=== PATIENT | female | born 1980 ===

== ENCOUNTER 2024-05-21 08:59 | Outpatient (AMB) | payer OTHER, SELFPAY ==
--- NOTE | 2024-05-21 09:18 | MHC.PC.OV ---
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: No Accompanied by: Self / Same As Patient Allergies No Known Allergies Allergy (Unverified 05/21/24 09:34) Medication List - Last Reconciled 05/21/24 by Jewel Childers MD fluticasone propionate 50 mcg/actuation (Flonase Allergy Relief) 1 spray intranasal BID lorazepam 1 mg PO BID PRN Ventolin HFA 90 mcg/actuation (albuterol sulfate) 2 puffs inhalation Q4-6H PRN 30 days NS Tobacco use date assessed: 05/21/24 Dental Screening Dental Screen Date: 05/21/24 Did you have a dental visit in the last 12 months?: No Did you have a dental problem in the last 6 months where you did not have access to dental care?: No Was dental information given to patient?: Patient has dentist HPI YOUTH DIRECTOR PE (High BP) HPI Details Patient comes in today for her annual physical examination and to reestablish care - is a patient of Dr. Pan She was last seen in January 2021 States that she has been out of her Rx and needs all of them refilled today She denies any headaches or dizziness Denies any chest pains, no SOB No nausea/vomiting, no abdominal pain No change in bowel habits noted She denies any acute urinary symptoms She does not appear to have had any mammogram done in the past She [facility] for her annual pap smear and gynecology exam but has not been back since 2016 States that she is now going to [facility] on [facility] in [facility] and had her exam done last year [facility] Medical History Anxiety disorder Asthma Allergic rhinitis Surgical History No pertinent past surgical history Family History Mother Diabetes Social History Housing: Apartment Alcohol intake: current Patient Tobacco Use Status: Never used Tobacco e-Cigarette/Vaping Use: Never Used service: No Current occupational status: employed Cognitive needs: No Hearing needs: No Vision needs: No Questionnaire PHQ-9 Over the last 2 weeks, how often have you been bothered by any of the following problems? 1. Little interest or pleasure in doing things: not at all 2. Feeling down, depressed, or hopeless: nearly every day 3. Trouble falling or staying asleep, or sleeping too much: nearly every day 4. Feeling tired or having little energy: not at all 5. Poor appetite or overeating: more than half the days 6. Feeling bad about yourself - or that you are a failure or have let yourself or your family down: nearly every day 7. Trouble concentrating on things, such as reading the newspaper or watching television: more than half the days 8. Moving or speaking so slowly that other people could have noticed. Or the opposite - being so fidgety or restless that you have been moving around a lot more than usual: not at all 9. Thoughts that you would be better off or of hurting yourself in some way: more than half the days Total score: 15 Depression Screening Interpretation: Positive Depression Screening Follow-up: Existing condition and Community Mental Health Worker F/U Depression Screening Done: Yes 86749 - PHQ-9 Billing: Yes Source: Developed by Drs. Charles Glover, Wanda Novak, Finn Dan and colleagues, with an educational alireza from [employer]. Thrive Questionnaire Date Thrive assessed: 05/21/24 I am a: Patient What is your living situation today?: I have a steady place to live Within the past 12 months, did the food you bought not last and you didn't have the money to get more?: Never true Within the past 12 months, did you worry whether your food would run out before you got money to buy more?: Never true Do you have trouble paying for medicines?: No Do you have trouble getting transportation to medical appointments?: No Do you have trouble paying your heating and electricity bill?: No Do you have trouble taking care of your child, family member or friend?: No Do you have trouble with day-to-day activities such as bathing, preparing meals, shopping, managing finances, etc.?: No Are you currently unemployed and looking for a job?: No Are you interested in more education?: No Please select the resources that you would like help with: None Currently or been in a relationship where the following occur: No concerns reported THRIVE Score: 0 AUDIT C Alcohol Use Questionnaire (AUDIT-C) 1. How often do you have a drink containing alcohol?: Monthly or less 2. How many drinks containing alcohol do you have on a typical day when you are drinking?: 1 or 2 3. How often do you have six or more drinks on one occasion?: Less than monthly Total Score: 2 Score Reviewed/Action Taken: Yes TUNDE-7 AMB Questionnaire TUNDE-7 Date TUNDE - 7 assessed: 05/21/24 Feeling nervous, anxious, or on edge: 2 = More than half the days Not being able to stop or control worryin = Nearly every day Worrying too much about different things: 3 = Nearly every day Trouble relaxin = More than half the days Being so restless that it is hard to sit still: 2 = More than half the days Becoming easily annoyed or irritable: 0 = Not at all Feeling afraid as if something awful might happen: 0 = Not at all Total TUNDE-7 score (0-4 normal; 5-9 mild; 10-14 moderate; 15-21 severe): 12 Source: Developed by Drs. Charles Glover, Wanda Novak, Finn Dan and colleagues, with an educational alireza from [employer]. TUNDE-7 Assessment Billing TUNDE-7 Assessment Tool: TUNDE-7 Assessment 97989 Review of Systems Const Denies chills, Denies fatigue, Denies fever(s), Denies headache(s) and Denies malaise Eyes Denies blurry vision, Denies change in vision, Denies irritation and Denies itchy eyes ENT Denies dysphagia, Denies dizziness, Denies otalgia, Denies headache(s), Denies nasal congestion, Denies neck pain, Denies odynophagia, Denies sinus pain and Denies sore throat Card Denies chest pain, Denies rapid heart rate, Denies irregular heart rhythm, Denies palpitations and Denies dyspnea Resp Denies chest congestion, Denies cough, Denies dyspnea and Denies wheezing GI Denies abdominal pain, Denies bloating, Denies constipation, Denies dysphagia, Denies heartburn, Denies diarrhea, Denies nausea, Denies odynophagia and Denies vomiting Denies hematuria, Denies urinary frequency, Denies dysuria, Denies urinary incontinence and Denies urinary urgency Musc Denies back pain, Denies arthralgias, Denies joint swelling, Denies muscle weakness and Denies neck pain Skin/Breast Denies breast pain, Denies breast mass, Denies change in pigmentation, Denies lesions, Denies rash and Denies unusual bruising Neuro Denies dizziness, Denies headache(s) and Denies paresthesias Psych Reports anxiety and Denies depression Endo Denies fatigue and Denies palpitations [place]/Lymph Denies easy bruising Aller/Immun Denies itchy eyes and Denies wheezing Physical exam (Primary Care) Vital Signs: Last Vital Signs Pulse 64 05/21/24 09:21 BP 120/80 05/21/24 09:21 Pulse Ox 99 05/21/24 09:21 Oxygen Delivery Method Room Air 05/21/24 09:21 BMI result Body Mass Index 21.8 Tobacco/Smoking Status: Tobacco use Status Tobacco use date assessed 05/21/24 05/21/24 09:32 Patient Tobacco Use Status Never used Tobacco 05/21/24 09:32 e-Cigarette/Vaping Use Never Used 05/21/24 09:32 PHQ-9: PHQ-9 Score PHQ-9: Total score 15 05/21/24 09:32 Depression Screening Interpretation: Positive Depression Screening Follow-up: Existing condition and Community Mental Health Worker F/U Thrive Assessment: Date of Thrive Assessment Date Thrive assessed 05/21/24 05/21/24 09:32 Currently or been in a relationship where the following occur: No concerns reported Const General: no acute distress, alert and awake Orientation/consciousness: patient oriented x3 HENMT Head: Yes normocephalic and Yes atraumatic Ears: external ears normal, TM's normal bilaterally and EAC's normal General nose exam: No nasal discharge present Face and sinus: Yes normal facial exam and Yes sinuses nontender Teeth and gingiva: dentition normal Throat: Yes posterior oropharynx normal and Yes tonsils normal (no TP congestion) Eyes Eyelids: Yes eyelids normal Conjunctivae: conjunctivae normal Pupils: Equal, round and reactive pupils present EOM: EOMs intact bilaterally Neck Neck: Yes no lymphadenopathy and Yes supple Thyroid: Thyroid normal Resp Auscultation: clear to auscultation bilaterally, no rales and wheezes (faint, bilaterally) expiratory wheezes Cardio Rate: regular rate Rhythm: regular rhythm Heart sounds: no murmurs GI Palpation (GI): Soft to palpation, nontender and No hepatosplenomegaly present Auscultation: normal bowel sounds General: Yes no CVA tenderness Back/Spine/Pelvis Back: no CVA tenderness Thoracic/Lumbar Spine: thoracic and lumbar spine normal to inspection Skin Lesions: no lesions Rashes: no rashes Neuro General: patient oriented x3, moves all extremities, no focal motor deficits and CN's II-XI intact bilaterally Cranial nerves: Yes Equal, round and reactive pupils present Cognition (Neuro): normal cognition Gait exam (Neuro): Normal gait present Extrem General: Yes no clubbing, cyanosis or edema Assessment and Plan Assessment & Plan (1) Annual physical exam: Code(s): Z00.00 - Encounter for general adult medical examination without abnormal findings Plan: Check labs She has not started her screening mammogram yet She last her annual pap smear and gynecology exam done [facility] but states that she is now going to [facility] on [facility] - had her exam last done last year (2) Asthma: Code(s): J45.909 - Unspecified asthma, uncomplicated Qualifiers: Asthma severity: mild Asthma persistence: intermittent Asthma complication type: uncomplicated Qualified Code(s): J45.20 - Mild intermittent asthma, uncomplicated Plan: Continue Albuterol HFA 1 to 2 inhalations Q 6 hours PRN - Rx refilled (3) Allergic rhinitis: Code(s): J30.9 - Allergic rhinitis, unspecified Qualifiers: Allergic rhinitis trigger: unspecified Allergic rhinitis seasonality: unspecified Qualified Code(s): J30.9 - Allergic rhinitis, unspecified Plan: Continue Fluticasone 50 mcg nasal spray QD PRN - Rx refilled She is also requesting for a referral to see an interactive media marketing specialist as she would like to have allergy testing - referral done (4) Anxiety disorder: Code(s): F41.9 - Anxiety disorder, unspecified Qualifiers: Anxiety disorder type: unspecified anxiety disorder Qualified Code(s): F41.9 - Anxiety disorder, unspecified Plan: Continue Lorazepam 1 mg BID PRN - Rx refilled (5) Breast cancer screening by mammogram: Code(s): Z12.31 - Encounter for screening mammogram for malignant neoplasm of breast Plan: Will send patient for screening mammogram - this will be her index screen Plan Follow up with PCP (Dr. Pan) in 3 to 4 months Orders: Orders Comprehensive [place]. Panel Fast Today E78.00 - Pure hypercholesterolemia, unspecified, F41.9 - Anxiety disorder, unspecified Lipid Panel Today E78.00 - Pure hypercholesterolemia, unspecified, F41.9 - Anxiety disorder, unspecified Vitamin D 25-OH Total Today E55.9 - Vitamin D deficiency, unspecified, F41.9 - Anxiety disorder, unspecified MM tomosynthesis screening BI Today Z12.31 - Encounter for screening mammogram for malignant neoplasm of breast Complete Blood Count Auto Diff Today D64.9 - Anemia, unspecified, F41.9 - Anxiety disorder, unspecified TSH reflex Free T4 Today E78.00 - Pure hypercholesterolemia, unspecified, F41.9 - Anxiety disorder, unspecified UA CC w/rflx Micro + Cult Today F41.9 - Anxiety disorder, unspecified, R30.0 - Dysuria Referrals Allergy & Immunology Referral J30.9 - Allergic rhinitis, unspecified, Z91.09 - Other allergy status, other than to drugs and biological substances Medications: Changed From albuterol sulfate 90 mcg/actuation (ProAir HFA) 2 puffs inhalation Q4-6H PRN 18 grams 8RF bronchospasm To Ventolin HFA 90 mcg/actuation (albuterol sulfate) 2 puffs inhalation Q4-6H 30 days PRN 18 grams 1RF bronchospasm NS Refilled fluticasone propionate 50 mcg/actuation (Flonase Allergy Relief) administer into each nostril 1 spray intranasal BID 16 grams 1RF lorazepam 1 mg PO BID PRN 60 tabs 0RF anxiety Coding Level of Care Code New Pt Prev Care 40-64y(82713) Diagnoses Annual physical exam Z00.00 Mild intermittent asthma without complication J45.20 Asthma severity: mild Asthma persistence: intermittent Asthma complication type: uncomplicated Allergic rhinitis, unspecified seasonality, unspecified trigger J30.9 Allergic rhinitis trigger: unspecified Allergic rhinitis seasonality: unspecified Anxiety disorder, unspecified type F41.9 Anxiety disorder type: unspecified anxiety disorder Breast cancer screening by mammogram Z12.31 Additional Codes TUNDE-7 Assessment Billing - TUNDE-7 Assessment Tool: TUNDE-7 Assessment 41104 ([id number])
[2024-05-21 09:21] VITALS: BP 120/80; PULSE 64; O2SAT 99; BMI 21.8
== END 2024-05-21 10:16 | disposition home or self-care (01) ==
PROVIDERS: PCP Internal Medicine; Visit Provider Internal Medicine
DX: Z00.00 Encounter for general adult medical examination without abnormal findings (principal); J45.20 Mild intermittent asthma, uncomplicated; J30.9 Allergic rhinitis, unspecified; F41.9 Anxiety disorder, unspecified; Z12.31 Encounter for screening mammogram for malignant neoplasm of breast
CPT/HCPCS: 99386

== ENCOUNTER 2024-07-07 13:31 | Outpatient (REF) | payer SELFPAY ==
[2024-07-07 13:53] LABS: MANUAL DIFF FLAG NO
[2024-07-07 14:25] LABS: Basophils Percent Auto 0.4 % (0-2); Eosinophils Absolute Auto 0.1 X10*3/uL (0.0-0.4); Eosinophils Percent Auto 1.1 % (0-4); Hematocrit 40.1 % (37.0-47.0); Hemoglobin 13.7 g/dl (12.0-16.0); Imm Gran Abs Auto 0.02 X10*3/uL (0.00-0.03); Imm Gran Pct Auto 0.4 % (0.0-0.4); Lymphocytes Absolute Auto 1.9 X10*3/uL (1.2-4.9); Lymphocytes Percent Auto 34.9 % (20-40); Mean Corpuscular HGB Conc 34.2 g/dl (31.0-35.0); Mean Corpuscular Hemoglobin 31.9 pg (27.0-33.0); Mean Corpuscular Volume 93.5 fL (80.0-98.0); Mean Platelet Volume 11.4 fL (9.4-12.3); Monocytes Absolute Auto 0.3 X10*3/uL (0.1-1.2); Monocytes Percent Auto 5.2 % (2-11); Neutrophils Absolute Auto 3.1 x10*3/uL (2.0-8.3); Platelet Count 174 X10*3/uL (160-400); Red Blood Count 4.29 X10*6/uL (4.20-5.50); Red Cell Distribution Width 12.2 % (11.0-16.0); White Blood Count 5.4 X10*3/uL (4.8-10.8)
[2024-07-07 15:34] LABS: Alanine Aminotransferase 13 U/L (0-31); Alkaline Phosphatase 68 U/L (39-117); Anion Gap 11 (12-20); Aspartate Amino Transferase 18 U/L (5-31); Bilirubin Total 0.9 mg/dL (0.0-1.0); Blood Urea Nitrogen 17 mg/dL (9-16); Calcium 9.2 mg/dL (8.4-10.2); Carbon Dioxide 26 mmol/L (22-29); Chloride 108 mmol/L (96-108); Cholesterol 166 mg/dL (<200); Estimated Glomerular Filt Rate > 60; Glucose Fasting 143 mg/dL (60-99); HDL Cholesterol 50 mg/dL (>40); LDL Cholesterol Calculated 102 mg/dL (<100); Potassium 4.2 mmol/L (3.3-5.1); Sodium 141 mmol/L (135-145); TSH reflex Free T4 2.48 uIU/mL (0.32-4.0); Total Protein 7.5 g/dL (6.5-8.0); Triglycerides 72 mg/dL (<150); Vitamin D 25-OH Total 10.1 ng/mL (>30)
== END 2024-07-07 13:32 | disposition home or self-care (01) ==
LOC: HO.LAB 13:31
PROVIDERS: Visit Provider Internal Medicine
DX: E78.00 Pure hypercholesterolemia, unspecified (principal); F41.9 Anxiety disorder, unspecified; E55.9 Vitamin D deficiency, unspecified; D64.9 Anemia, unspecified
CPT/HCPCS: 36415; 80053; 80061; 82306; 84443; 85025

== ENCOUNTER 2025-10-27 13:13 | Emergency (ER) | payer OTHER, SELFPAY ==
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
[2025-10-27 13:46] VITALS: BP 144/78; PULSE 80; RESP 18; TEMP 36.3; O2SAT 100; BMI 23.4
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
[2025-10-27 16:04] VITALS: BP 144/78; PULSE 80; RESP 18; TEMP 36.3; O2SAT 100
== END 2025-10-27 16:04 | disposition home or self-care (01) ==
PROVIDERS: Emergency Provider Emergency Medicine; PCP Internal Medicine
DX: Z04.1 Encounter for examination and observation following transport accident (principal); M79.18 Myalgia, other site; M54.50 Low back pain, unspecified
CPT/HCPCS: 71101; 72072; 72100; 99282; 99283